=== PATIENT | female | born 1975 | race Caucasian/White ===

== ENCOUNTER 2020-06-01 05:22 | Day surgery (SDC) | payer BC, OTHER ==
[2020-05-31 11:21] VITALS: BMI 28.3
[2020-06-01] MEDS ORDERED: LIDOCAINE 1%/EPI 1:100000 (50 ML MULTI DOSE VIAL) ONE ×2 (12:57→13:12)
[2020-06-01] MEDS ORDERED: THROMBIN (BOVINE) 5,000 UNIT VIAL TP ONE ×3 (12:57→14:21)
[2020-06-01] MEDS ORDERED: PROMETHAZINE HCL 25 MG/1 ML VIAL IVPUSH PRN (13:20)
[2020-06-01] MEDS ORDERED: oxyCODONE HCL 5 MG TABLET PO PRN (13:20)
[2020-06-01] MEDS ORDERED: LACTATED RINGERS SOLUTION 1,000 ML IV SCH (13:30)
[2020-06-01] MEDS ORDERED: LIDOCAINE 1%/EPI 1:100000 (50 ML MULTI DOSE VIAL) INF ONE ×3 (13:37→14:21)
[2020-06-01] MEDS ORDERED: BUPIVACAINE HCL/PF 0.5% (5 MG/ML) 30 ML VIAL IJ ONE ×4 (13:38→14:21)
[2020-06-01] MEDS ORDERED: PROPOFOL 20 ML ONE ×2 (13:49)
[2020-06-01] MEDS ORDERED: fentaNYL CITRATE 250 MCG/5 ML VIAL ONE (13:49)
[2020-06-01] MEDS ORDERED: LIDOCAINE HCL/PF 2% SDV 5ML VIAL ONE ×2 (13:49→14:52)
[2020-06-01] MEDS ORDERED: ROCURONIUM BROMIDE 50 MG/5 ML SYRINGE ONE (13:50)
[2020-06-01] MEDS ORDERED: MIDAZOLAM HCL 2 MG/2 ML SINGLE DOSE VIAL ONE (13:50)
[2020-06-01] MEDS ORDERED: ceFAZolin SODIUM 1 GM VIAL IVPB ONE (14:20)
[2020-06-01] MEDS ORDERED: DEXAMETHASONE SOD PHOSPHATE 4 MG/1 ML VIAL ONE (14:44)
[2020-06-01] MEDS ORDERED: HYDROmorphone HCl 2 MG/ML VIAL ONE (14:45)
[2020-06-01] MEDS ORDERED: ONDANSETRON 4 MG/2 ML VIAL ONE ×2 (15:26→18:51)
[2020-06-01] MEDS: ONDANSETRON 4 MG/2 ML VIAL IVPUSH PRN ×2 (15:30→18:55)
[2020-06-01] MEDS ORDERED: SODIUM CHLORIDE 0.9% P/F 10 ML VIAL IJ ONE (15:31)
[2020-06-01] MEDS ORDERED: oxyCODONE HCL 5 MG TABLET ONE (17:26)
[2020-06-01 19:18] VITALS: BP 150/88; PULSE 68; TEMP 97.8
== END 2020-06-01 19:18 | disposition home or self-care (01) ==
LOC: JASU-SURG 05:22
PROVIDERS: ATTEND Surgery
PROC: 0GTG0ZZ Resection of Left Thyroid Gland Lobe, Open Approach (ICD-10-PCS; 2020-06-01)
PROC: 0GTJ0ZZ Resection of Thyroid Gland Isthmus, Open Approach (ICD-10-PCS; principal; 2020-06-01 12:00)
DX: E04.2 Nontoxic multinodular goiter (principal)
CPT/HCPCS: 81025; 88307-TC; 94760